=== PATIENT | female | born 1995 | race Caucasian/White ===

== ENCOUNTER 2018-04-18 06:11 | Inpatient (IN) | payer BC, SELFPAY ==
[2018-04-18] VITALS (9 sets, daily range): BP systolic 115; BP diastolic 77; PULSE 80; RESP 16–20; TEMP 36.1; O2SAT 99–100
[2018-04-18] MEDS: Lactated Ringers 1,000 ML 125 ML IV ×2 (06:45→09:03)
--- NOTE | 2018-04-18 07:00 | W.PM.HP.N ---
at 39 2/7 s/p prior section after 35 hrs labor got to 7 cm - failure to progress >8# female in op position - good apgars curent with no complications approp fundal growth, no gdm, iugr, ptl usual third trimester discomforts of - sore back over past few days - no ctx, excellent fmvt, no rom labs per pn chart no known allergies Discussed in office and again this morning the proposed procedure: repeat lt/section. She is fully aware of TOLAC option - given her medium risk status risks out of [facility] - would need to transfer to [facility] [place] Section risks: bleeding, infection, damage to internal organs all reviewed in detail. Rickey present - all questions addressed they both freely signed consent form [facility] Social History Smoking/Tobacco Use Status: Never Meds Home Medications Medication Instructions Recorded Confirmed Type Pnv No.95/Ferrous Fum/Folic AC 1 tab PO DAILY 05/01/17 04/18/18 History [ Multivitamin Tablet] sertraline 100 mg PO DAILY 05/01/17 04/18/18 History Allergies Allergy/AdvReac Type Severity Reaction Status Date / Time No Known Allergies Allergy Unverified 05/01/17 02:04 Exam Narrative Exam Narrative: no cough, uri sx lungs - clear ant and post cvs - reg, no murmur abd - soft, gravid - 38 cm, vtx by zoey ext - no edema prior section scar well healed alert, comfortable skin - clear - no lesions Results Last Vital Signs Temp 36.1 C L 04/18/18 06:38 Pulse 80 04/18/18 06:38 Resp 20 04/18/18 06:38 BP 115/77 04/18/18 06:38 Pulse Ox 100 04/18/18 06:38
--- NOTE | 2018-04-18 07:08 | HPE_ITS ---
at 39 2/7 s/p prior section after 35 hrs labor got to 7 cm - failure to progress >8# female in op position - good apgars curent with no complications approp fundal growth, no gdm, iugr, ptl usual third trimester discomforts of - sore back over past few days - no ctx, excellent fmvt, no rom labs per pn chart no known allergies Discussed in office and again this morning the proposed procedure: repeat lt/section. She is fully aware of TOLAC option - given her medium risk status risks out of [facility] - would need to transfer to [facility] Section risks: bleeding, infection, damage to internal organs all reviewed in detail. Rickey present - all questions addressed they both freely signed consent form [facility] Social History Smoking/Tobacco Use Status: Never Meds Home Medications Medication Instructions Recorded Confirmed Type Pnv No.95/Ferrous Fum/Folic AC 1 tab PO DAILY 05/01/17 04/18/18 History [ Multivitamin Tablet] sertraline 100 mg PO DAILY 05/01/17 04/18/18 History Allergies Allergy/AdvReac Type Severity Reaction Status Date / Time No Known Allergies Allergy Unverified 05/01/17 02:04 Exam Narrative Exam Narrative: no cough, uri sx lungs - clear ant and post cvs - reg, no murmur abd - soft, gravid - 38 cm, vtx by zoey ext - no edema prior section scar well healed alert, comfortable skin - clear - no lesions Results Last Vital Signs Temp 36.1 C L 04/18/18 06:38 Pulse 80 04/18/18 06:38 Resp 20 04/18/18 06:38 BP 115/77 04/18/18 06:38 Pulse Ox 100 04/18/18 06:38
[2018-04-18] MEDS: Sodium Citrate 30 ML CUP PO (07:13)
--- NOTE | 2018-04-18 07:18 | W.PM.HP.N ---
Assessment and Plan (1) Term , repeat: Start date: 08/07/17 Current visit: Yes Status: Acute move to repeat section as planned this morning Chart complete, anes aware, surgeons and peds present PFS Social History Smoking/Tobacco Use Status: Never Meds Home Medications Medication Instructions Recorded Confirmed Type Pnv No.95/Ferrous Fum/Folic AC 1 tab PO DAILY 05/01/17 04/18/18 History [ Multivitamin Tablet] sertraline 100 mg PO DAILY 05/01/17 04/18/18 History Allergies Allergy/AdvReac Type Severity Reaction Status Date / Time No Known Allergies Allergy Unverified 05/01/17 02:04 Results Last Vital Signs Temp 36.1 C L 04/18/18 06:38 Pulse 80 04/18/18 06:38 Resp 20 04/18/18 06:38 BP 115/77 04/18/18 06:38 Pulse Ox 100 04/18/18 06:38
[2018-04-18] MEDS: Bupivacaine 0.5% Pres-Free 30 ML VIAL (08:52)
--- NOTE | 2018-04-18 10:10 | W.PM.OP ---
Operative Note DATE OF PROCEDURE: 04/18/18 PRE-OP DIAGNOSIS: scheduled repeat low transverse c/section POST-OP DIAGNOSIS: same PROCEDURE: Consent form reviewed in pre-op hold area. Risks outlined, again, all questions answered. Ning freely signed form. Once spinal anes achieved - vaginal betadine prep, alexander catheter placed, sterile abd prep. Sterile drapes placed, anes tested and adequate. ~20 cc marcaine injected into subcut tissue along incision line. 10 blade - sharp incision through skin and sub cut scar tissue. Fascia identified in midline - extended with scissors laterally rectus muscles identified - raji clamps used to separate fascia from rectus sheath. peritoneum entered carefully - well superior to the bladder uterus readily identified, bladder blade placed, bladder flap developed. sharp midline uterine incision - clear af, vertex identified. incision extended digitally. with firm fundal pressure vtx delivered - nose and mouth suctioned - clear af. spont resp effort - easy shoulders, pink, vigorous male cord cut - infant to peds for initial eval. gentle traction and membrane spiraling yielded intact placents over next 3-4 minutes iv pit and manual massage - good uterine tone uterus exteriorized - no extensions noted. two layer closure with 0 vicryl - second layer imbricated hemostasis complete - r and l gutters irrigated clear - uterus replaced in abd post uterus - no trauma, nl ovaries/tubes identified rectus fascia closed with running 0 vicryl overlapped in midline - this was tested digitally and felt to be intact with no defects sub cut layer irrigated - space approximated with 2-0 vicryl. final skin closure completed with 4-0 vicryl complete hemostasis, bulky dressing applied she was awake and tolerated procedure well. partner present throughout SURGEON: Bentley Acosta CUSTOMER SUCCESS REPRESENTATIVE: Haleigh Gomez ANESTHESIA: spinal ESTIMATED BLOOD LOSS: 500 PATHOLOGY: none sent TOURNIQUET TIME: 0 COMPLICATIONS: None Patient was transported to: floor Patient's condition: stable Procedure Description: see above
[2018-04-18] MEDS: diphenhydrAMINE 50 MG/ML VIAL 12.5 MG IV (17:46)
[2018-04-18] MEDS: Ketorolac 30 MG/ML VIAL IVP (17:47)
[2018-04-18] MEDS: Normal Saline Flush 10 ML SYR IVP ×2 (17:49→20:42)
[2018-04-19] MEDS: Ketorolac 30 MG/ML VIAL IVP ×2 (00:10→07:09)
[2018-04-19] MEDS: diphenhydrAMINE 50 MG/ML VIAL 12.5 MG IV (04:08)
[2018-04-19] MEDS: Normal Saline Flush 10 ML SYR IVP (04:09)
[2018-04-19 07:25] LABS: HCT 29.7 % (36.0-46.0); HGB 9.6 g/dL (12.0-15.5); Mean Corp. HGB Concentration 32.3 g/dL (32.0-36.0); Mean Corpuscular Hemoglobin 28.5 pg (27.0-33.0); Mean Corpuscular Volume 88.1 fL (80-95); Mean Platelet Volume 9.2 fL (8.0-11.0); Platelet Count 299 x1000/uL (130-400); RBC 3.37 m/cumm (4.00-5.20); RBC Distribution Width 13.1 % (11.7-14.6); White Blood Cell Count 11.16 k/cumm (4.4-10.8)
[2018-04-19] MEDS: Ibuprofen 600 MG TAB PO ×2 (12:57→18:17)
[2018-04-19] MEDS: oxyCODONE 5 mg/Acetaminophen 325 mg TAB PO ×3 (14:18→23:59)
[2018-04-19] MEDS: Docusate Sodium 100 MG CAP PO (19:31)
[2018-04-20] MEDS: Acetaminophen 325 MG TAB 650 MG PO (02:55)
[2018-04-20] MEDS: oxyCODONE 5 mg/Acetaminophen 325 mg TAB PO (08:05)
[2018-04-20] MEDS: Ibuprofen 600 MG TAB PO ×2 (08:05)
[2018-04-20] MEDS: Docusate Sodium 100 MG CAP PO (08:06)
== END 2018-04-20 10:58 | disposition home or self-care (01) | DRG 788 ==
LOC: PDS 07:36 → OBS 08:42
PROVIDERS: Admitting Provider Family Medicine; PCP Family Medicine; Visit Provider Family Medicine
PROC: 10D00Z1 Extraction of Products of Conception, Low, Open Approach (ICD-10-PCS; CPT 59514; principal; 2018-04-18 07:30)
DX: O34.211 Maternal care for low transverse scar from previous cesarean delivery (principal); Z37.0 Single live birth; Z3A.39 39 weeks gestation of pregnancy; O99.824 Streptococcus B carrier state complicating childbirth
CPT/HCPCS: 59514; 36415; 85027; 86850; 86900; 86901; 99221; 99222; J0690; J1200; J1885; J2405; J2590; J3490